=== PATIENT | male | born 1940 | race Caucasian/White ===

== ENCOUNTER 2018-01-21 07:28 | Emergency (ER) | payer MEDICARE ==
[~2018-01-21] VITALS: Ht 165.1 cm; Wt 50.8 kg
[~2018-01-21 07:28] MED LIST: ALBU90OI INH; BENZ100A PO; CEFD300 PO; HTN MED; LORA10 PO; Pseudoephedrine30 MG PO; SPACE CHAMBER1 EACH MC; Veetids 500500 MG PO; Zithromax250 MG PO
[2018-01-21 08:30] LABS: Source, Urine Catheter
[2018-01-21 08:41] LABS: Bilirubin, Urine Neg (Neg); Blood, Urine 1+ (Neg); Glucose Qualitative, Urine Neg (Neg); Ketones, Urine Neg (Neg); Leukocyte Esterase, Urine Neg (Neg); Nitrite, Urine Neg (Neg); Protein, Urine Neg (Neg); Specific Gravity, Urine 1.015 (1.003-1.022); Urobilinogen, Urine NORM (Normal)
[2018-01-21 08:43] LABS: BASOPHILS ABSOLUTE AUTO 0.03 K/mm3 (0.00-0.23); BASOPHILS PERCENT AUTO 1 % (0-2); EOSINOPHILS ABSOLUTE AUTO 0.12 K/mm3 (0.00-0.68); EOSINOPHILS PERCENT AUTO 2 % (0-6); Hemoglobin 14.5 g/dL (13.5-17.5); IMMATURE GRAN ABSOLUTE AUTO 0.01 K/mm3 (0.00-0.10); IMMATURE GRAN PERCENT AUTO 0 % (0-1); LYMPHOCYTES ABSOLUTE AUTO 1.23 K/mm3 (0.84-5.20); LYMPHOCYTES PERCENT AUTO 20 % (21-46); MONOCYTES ABSOLUTE AUTO 0.44 K/mm3 (0.16-1.47); MONOCYTES PERCENT AUTO 7 % (4-13); Mean Corpuscular HGB 30.9 pg (26.0-34.0); Mean Corpuscular HGB Conc 33.7 g/dL (31.5-36.5); Mean Corpuscular Volume 92 fL (80-100); Mean Platelet Volume 10.5 fL (9.1-12.4); NEUTROPHILS ABSOLUTE AUTO 4.41 K/mm3 (1.96-9.15); NEUTROPHILS PERCENT AUTO 71 % (41-73); Platelet Count 163 K/mm3 (150-400); RDW Coefficient Variation 13.2 % (11.7-14.2); RDW Standard Deviation 44.8 fL (35.1-46.3); White Blood Cell Count 6.24 K/mm3 (4.00-11.30)
[2018-01-21 08:57] LABS: Appearance, Urine Clear (Clear); Bacteria Not Seen /hpf; Color, Urine Yellow (P-Yellow); Squamous Epithelial Cells Not Seen /hpf (Few); White Blood Cells, Urine Not Seen /hpf (0-5)
[2018-01-21 09:09] LABS: Alanine Aminotransfer (ALT/SGP 25 U/L (12-78); Albumin, Blood 3.5 g/dL (3.4-5.0); Albumin/Globulin Ratio 1.2 (0.8-1.8); Alk Phos 124 U/L (50-136); Anion Gap 8 mmol/L (6-16); Aspartate Aminotrans (AST/SGOT 21 U/L (12-37); Bilirubin, Total 0.6 mg/dL (0.1-1.0); Blood Urea Nitrogen 23 mg/dL (8-24); Bun/Creatinine Ratio 33.3 (12.0-20.0); CO2, Blood 24 mmol/L (21-32); Calcium, Blood 8.3 mg/dL (8.5-10.1); Chloride, Blood 113 mmol/L (98-108); Creatinine, Blood 0.69 mg/dL (0.60-1.20); Glomerular Filtration Rate >60 (60-); Glucose, Blood 98 mg/dL (70-99); Potassium, Blood 3.9 mmol/L (3.5-5.5); Sodium, Blood 145 mmol/L (136-145); Total Protein, Blood 6.5 g/dL (6.4-8.2)
[2018-01-21] MEDS ORDERED: Flomax0.4 MG PO (09:31)
== END 2018-01-21 10:21 | disposition home or self-care (01) ==
LOC: ER 07:28
PROVIDERS: Physician Assistant
DX: R33.9 Retention of urine, unspecified (principal); F17.210 Nicotine dependence, cigarettes, uncomplicated
CPT/HCPCS: 36415; 51702; 51798; 80053; 81001; 85025; 99283-25

== ENCOUNTER 2018-04-03 14:17 | Emergency (ER) | payer MEDICARE ==
[~2018-04-03] VITALS: Ht 165.1 cm; Wt 54.4 kg
[~2018-04-03 14:17] MED LIST changes: +Flomax0.4 MG PO
[2018-04-03 16:38] LABS: Source, Urine Catheter
[2018-04-03 16:46] LABS: Bilirubin, Urine Neg (Neg); Blood, Urine 5+ (Neg); Glucose Qualitative, Urine Neg (Neg); Ketones, Urine 1+ (Neg); Leukocyte Esterase, Urine 3+ (Neg); Nitrite, Urine Pos (Neg); Protein, Urine 2+ (Neg); Urobilinogen, Urine 1+ (Normal)
[2018-04-03 16:59] LABS: Appearance, Urine Clear (Clear); Color, Urine Yellow (P-Yellow)
[2018-04-03 17:00] LABS: Bacteria Few /hpf; Mucus Light (0-Heavy); Squamous Epithelial Cells Rare /hpf (Few)
[2018-04-03] MEDS ORDERED: LEVFLO500 PO (17:30)
== END 2018-04-03 18:12 | disposition home or self-care (01) ==
LOC: ER 14:17
PROVIDERS: Internal Medicine
DX: T83.511A Infection and inflammatory reaction due to indwelling urethral catheter, initial encounter (principal); F17.210 Nicotine dependence, cigarettes, uncomplicated; Z79.899 Other long term (current) drug therapy
CPT/HCPCS: 51702; 81001; 87077; 87086; 87186; 99283-25

== ENCOUNTER → 2018-08-16 | Outpatient (CLI) | payer MEDICARE ==
[~2018-08-16] MED LIST changes: +LEVFLO500 PO
== END | disposition home or self-care (01) ==
LOC: LAB EV 15:14 → LAB SHORT 15:14
DX: R33.9 Retention of urine, unspecified (principal)
CPT/HCPCS: 87086

== ENCOUNTER 2018-08-19 09:03 | Emergency (ER) | payer MEDICARE ==
[~2018-08-19] VITALS: Ht 165.1 cm; Wt 56.7 kg
[2018-08-19 10:07] LABS: Source, Urine Clean Catch
[2018-08-19 10:18] LABS: Bilirubin, Urine Neg (Neg); Blood, Urine Neg (Neg); Glucose Qualitative, Urine Neg (Neg); Ketones, Urine Neg (Neg); Leukocyte Esterase, Urine Neg (Neg); Nitrite, Urine Neg (Neg); Protein, Urine Neg (Neg); Urobilinogen, Urine NORM (Normal)
[2018-08-19 10:21] LABS: Appearance, Urine Clear (Clear); Color, Urine Yellow (P-Yellow)
[2018-08-19] MEDS ORDERED: Flomax0.4 MG PO (10:29)
== END 2018-08-19 10:57 | disposition home or self-care (01) ==
LOC: ER 09:03
PROVIDERS: Emergency Medicine
DX: N40.1 Benign prostatic hyperplasia with lower urinary tract symptoms (principal); R35.0 Frequency of micturition; F17.210 Nicotine dependence, cigarettes, uncomplicated; Z79.899 Other long term (current) drug therapy
CPT/HCPCS: 81003; 99283

== ENCOUNTER → 2018-09-18 | Outpatient (CLI) | payer MEDICARE | END | disposition home or self-care (01) | LOC: LAB EV 17:14 → LAB SHORT 17:14 | DX: N39.0 Urinary tract infection, site not specified (principal) | CPT/HCPCS: 87086 ==

== ENCOUNTER 2018-09-30 12:32 | Emergency (ER) | payer MEDICARE ==
[~2018-09-30] VITALS: Ht 165.1 cm; Wt 56.7 kg
== END 2018-09-30 14:48 | disposition left against medical advice (07) ==
LOC: ER 12:32
DX: Z53.21 Procedure and treatment not carried out due to patient leaving prior to being seen by health care provider (principal)

== ENCOUNTER → 2018-11-07 | Outpatient (CLI) | payer MEDICARE, OTHER | END | disposition home or self-care (01) | LOC: LAB EV 16:48 → LAB SHORT 16:48 | DX: N39.0 Urinary tract infection, site not specified (principal) | CPT/HCPCS: 87086 ==

== ENCOUNTER → 2019-02-13 | Outpatient (CLI) | payer MEDICARE, OTHER ==
[~2019-02-13] MED LIST changes: +Bactrim Ds Tab1 EACH PO; +CEPH500 PO; +FINA5 PO; +NITR100CA PO; +Nitrostat0.4 MG SL; +ONDA4 PO; +ONDA4ODT MM; +Pyridium200 MG PO; +Ranitidine HCl150 M1 PO; +TAMS.4ER PO
[2019-02-13 12:36] LABS: BASOPHILS ABSOLUTE AUTO 0.02 K/mm3 (0.00-0.23); BASOPHILS PERCENT AUTO 0 % (0-2); EOSINOPHILS ABSOLUTE AUTO 0.06 K/mm3 (0.00-0.68); EOSINOPHILS PERCENT AUTO 1 % (0-6); Hematocrit 39.8 % (37.0-53.0); Hemoglobin 13.7 g/dL (13.5-17.5); IMMATURE GRAN ABSOLUTE AUTO 0.05 K/mm3 (0.00-0.10); IMMATURE GRAN PERCENT AUTO 1 % (0-1); LYMPHOCYTES ABSOLUTE AUTO 0.99 K/mm3 (0.84-5.20); LYMPHOCYTES PERCENT AUTO 11 % (21-46); MONOCYTES ABSOLUTE AUTO 0.68 K/mm3 (0.16-1.47); MONOCYTES PERCENT AUTO 8 % (4-13); Mean Corpuscular HGB 31.7 pg (26.0-34.0); Mean Corpuscular HGB Conc 34.4 g/dL (31.5-36.5); Mean Corpuscular Volume 92 fL (80-100); Mean Platelet Volume 10.4 fL (9.1-12.4); NEUTROPHILS ABSOLUTE AUTO 7.18 K/mm3 (1.96-9.15); NEUTROPHILS PERCENT AUTO 80 % (41-73); Platelet Count 191 K/mm3 (150-400); RDW Coefficient Variation 13.6 % (11.7-14.2); Red Blood Cell Count 4.32 M/mm3 (4.30-5.90); White Blood Cell Count 8.98 K/mm3 (4.00-11.30)
[2019-02-13 12:48] LABS: Alanine Aminotransfer (ALT/SGP 19 U/L (12-78); Albumin, Blood 3.1 g/dL (3.4-5.0); Alk Phos 127 U/L (40-126); Anion Gap 11 mmol/L (6-16); Aspartate Aminotrans (AST/SGOT 15 U/L (12-37); Bilirubin, Total 0.8 mg/dL (0.1-1.0); Blood Urea Nitrogen 14 mg/dL (8-24); Bun/Creatinine Ratio 18.2 (12.0-20.0); CO2, Blood 23 mmol/L (21-32); Calcium, Blood 8.1 mg/dL (8.5-10.1); Chloride, Blood 103 mmol/L (98-108); Creatinine, Blood 0.77 mg/dL (0.60-1.20); Globulin, Blood 3.2 g/dL (2.2-4.0); Glomerular Filtration Rate >60 (60-); Glucose, Blood 127 mg/dL (70-99); Potassium, Blood 4.2 mmol/L (3.5-5.5); Sodium, Blood 137 mmol/L (136-145); Total Protein, Blood 6.3 g/dL (6.4-8.2)
== END | disposition home or self-care (01) ==
LOC: LAB SHORT 12:32 → LAB EV 12:32
PROVIDERS: Family Medicine
DX: R63.4 Abnormal weight loss (principal)
CPT/HCPCS: 80053; 83690; 85025

== ENCOUNTER 2019-02-15 19:00 | Emergency (ER) | payer MEDICARE, OTHER ==
[~2019-02-15] VITALS: Ht 162.6 cm; Wt 63.5 kg
[~2019-02-15 19:00] MED LIST changes: -Bactrim Ds Tab1 EACH PO; -CEPH500 PO; -FINA5 PO; -NITR100CA PO; -Nitrostat0.4 MG SL; -ONDA4 PO; -ONDA4ODT MM; -Pyridium200 MG PO; -Ranitidine HCl150 M1 PO; -TAMS.4ER PO
[2019-02-15 19:56] LABS: BASOPHILS ABSOLUTE AUTO 0.03 K/mm3 (0.00-0.23); BASOPHILS PERCENT AUTO 0 % (0-2); EOSINOPHILS ABSOLUTE AUTO 0.13 K/mm3 (0.00-0.68); EOSINOPHILS PERCENT AUTO 1 % (0-6); Hematocrit 37.2 % (37.0-53.0); Hemoglobin 12.4 g/dL (13.5-17.5); IMMATURE GRAN ABSOLUTE AUTO 0.06 K/mm3 (0.00-0.10); IMMATURE GRAN PERCENT AUTO 1 % (0-1); LYMPHOCYTES ABSOLUTE AUTO 1.23 K/mm3 (0.84-5.20); LYMPHOCYTES PERCENT AUTO 13 % (21-46); MONOCYTES ABSOLUTE AUTO 0.73 K/mm3 (0.16-1.47); MONOCYTES PERCENT AUTO 8 % (4-13); Mean Corpuscular HGB Conc 33.3 g/dL (31.5-36.5); Mean Corpuscular Volume 93 fL (80-100); Mean Platelet Volume 10.1 fL (9.1-12.4); NEUTROPHILS ABSOLUTE AUTO 7.11 K/mm3 (1.96-9.15); NEUTROPHILS PERCENT AUTO 77 % (41-73); Platelet Count 214 K/mm3 (150-400); RDW Coefficient Variation 13.6 % (11.7-14.2); RDW Standard Deviation 46.3 fL (35.1-46.3); White Blood Cell Count 9.29 K/mm3 (4.00-11.30)
[2019-02-15 20:24] LABS: Alanine Aminotransfer (ALT/SGP 19 U/L (12-78); Albumin, Blood 3.4 g/dL (3.4-5.0); Albumin/Globulin Ratio 1.1 (0.8-1.8); Alk Phos 108 U/L (50-136); Anion Gap 7 mmol/L (6-16); Aspartate Aminotrans (AST/SGOT 12 U/L (12-37); Bilirubin, Total 0.3 mg/dL (0.1-1.0); Blood Urea Nitrogen 23 mg/dL (8-24); Bun/Creatinine Ratio 24.7 (12.0-20.0); CO2, Blood 23 mmol/L (21-32); Calcium, Blood 8.5 mg/dL (8.5-10.1); Chloride, Blood 109 mmol/L (98-108); Creatinine, Blood 0.93 mg/dL (0.60-1.20); Glomerular Filtration Rate >60 (60-); Glucose, Blood 100 mg/dL (70-99); Potassium, Blood 4.9 mmol/L (3.5-5.5); Sodium, Blood 139 mmol/L (136-145); Total Protein, Blood 6.4 g/dL (6.4-8.2)
[2019-02-15 22:45] LABS: Source, Urine Catheter
[2019-02-15 22:50] LABS: Bilirubin, Urine Neg (Neg); Blood, Urine 5+ (Neg); Glucose Qualitative, Urine Neg (Neg); Ketones, Urine Neg (Neg); Leukocyte Esterase, Urine 2+ (Neg); Nitrite, Urine Neg (Neg); Protein, Urine 2+ (Neg); Urobilinogen, Urine 1+ (Normal)
[2019-02-15 22:55] LABS: Appearance, Urine Hazy (Clear); Color, Urine Yellow (P-Yellow)
[2019-02-15 22:57] LABS: Amorphous Light ({null, 0-Heavy}); Bacteria Few /hpf; Mucus Light ({null, 0-Heavy}); Red Blood Cells, Urine TNTC /hpf (0-2); Squamous Epithelial Cells Not Seen /hpf (Few); Uric Acid Crystals Mod /hpf
[2019-02-16] MEDS ORDERED: ONDA4ODT MM (00:01)
== END 2019-02-16 00:15 | disposition home or self-care (01) ==
LOC: ER 19:00
PROVIDERS: Physician Assistant
DX: R11.2 Nausea with vomiting, unspecified (principal); F17.210 Nicotine dependence, cigarettes, uncomplicated
CPT/HCPCS: 36415; 80053; 81001; 83690; 85025; 87086; 96361; 96374; 99283-25; J2405; J7030

== ENCOUNTER 2019-02-24 18:58 | Observation (INO) | payer MEDICARE, OTHER ==
[~2019-02-24] VITALS: Ht 165.1 cm; Wt 50.8 kg
[~2019-02-24 18:58] MED LIST changes: +ONDA4ODT MM
[2019-02-24 19:23] LABS: BASOPHILS ABSOLUTE AUTO 0.03 K/mm3 (0.00-0.23); BASOPHILS PERCENT AUTO 0 % (0-2); EOSINOPHILS ABSOLUTE AUTO 0.11 K/mm3 (0.00-0.68); EOSINOPHILS PERCENT AUTO 1 % (0-6); Hematocrit 36.6 % (37.0-53.0); Hemoglobin 11.8 g/dL (13.5-17.5); IMMATURE GRAN ABSOLUTE AUTO 0.04 K/mm3 (0.00-0.10); IMMATURE GRAN PERCENT AUTO 0 % (0-1); LYMPHOCYTES ABSOLUTE AUTO 1.16 K/mm3 (0.84-5.20); LYMPHOCYTES PERCENT AUTO 11 % (21-46); MONOCYTES ABSOLUTE AUTO 0.43 K/mm3 (0.16-1.47); MONOCYTES PERCENT AUTO 4 % (4-13); Mean Corpuscular HGB 31.1 pg (26.0-34.0); Mean Corpuscular HGB Conc 32.2 g/dL (31.5-36.5); Mean Platelet Volume 9.8 fL (9.1-12.4); NEUTROPHILS ABSOLUTE AUTO 8.46 K/mm3 (1.96-9.15); NEUTROPHILS PERCENT AUTO 83 % (41-73); Platelet Count 285 K/mm3 (150-400); RDW Coefficient Variation 13.2 % (11.7-14.2); RDW Standard Deviation 47.9 fL (35.1-46.3); Red Blood Cell Count 3.79 M/mm3 (4.30-5.90); White Blood Cell Count 10.23 K/mm3 (4.00-11.30)
[2019-02-24 19:28] LABS: Mean Corpuscular Volume 97 fL (80-100)
[2019-02-24 19:36] LABS: Alanine Aminotransfer (ALT/SGP 21 U/L (12-78); Albumin, Blood 3.1 g/dL (3.4-5.0); Alk Phos 125 U/L (50-136); Anion Gap 8 mmol/L (6-16); Aspartate Aminotrans (AST/SGOT 13 U/L (12-37); Bilirubin, Total 0.3 mg/dL (0.1-1.0); Blood Urea Nitrogen 21 mg/dL (8-24); Bun/Creatinine Ratio 27.6 (12.0-20.0); CO2, Blood 22 mmol/L (21-32); Calcium, Blood 7.9 mg/dL (8.5-10.1); Chloride, Blood 109 mmol/L (98-108); Creatinine, Blood 0.76 mg/dL (0.60-1.20); Globulin, Blood 3.1 g/dL (2.2-4.0); Glomerular Filtration Rate >60 (60-); Glucose, Blood 187 mg/dL (70-99); Potassium, Blood 3.9 mmol/L (3.5-5.5); Sodium, Blood 139 mmol/L (136-145); Total Protein, Blood 6.2 g/dL (6.4-8.2); Troponin I <0.015 ng/mL (0.000-0.040)
[2019-02-24 21:58] LABS: Source, Urine Voided
[2019-02-24 22:07] LABS: Bilirubin, Urine Neg (Neg); Blood, Urine 5+ (Neg); Glucose Qualitative, Urine Neg (Neg); Ketones, Urine 1+ (Neg); Leukocyte Esterase, Urine 2+ (Neg); Nitrite, Urine Neg (Neg); Protein, Urine 2+ (Neg); Specific Gravity, Urine 1.015 (1.003-1.022); Urobilinogen, Urine 2+ (Normal)
[2019-02-24 22:08] LABS: Appearance, Urine Clear (Clear); Color, Urine Amber (P-Yellow)
[2019-02-24 22:16] LABS: Bacteria Mod /hpf; Mucus Light (0-Heavy); Red Blood Cells, Urine TNTC /hpf (0-2); Squamous Epithelial Cells Not Seen /hpf (Few)
--- NOTE | 2019-02-25 06:38 | NUR ---
SHIFT SUMMARY PT ARRIVED TO ROOM APPROX 0200. NO C/O PAIN. BEEN VERY SLEEPY NOT ABLE TO STAY AWAKE FOR VERY LONG BEFORE FALLING BACK TO SLEEP. CALL LIGHT IN REACH.
--- NOTE | 2019-02-25 18:53 | NUR ---
SHIFT SUMMARY PT SLEEPING DURING SHIFT REPORT. PT ADMITTED DURING THE NIGHT FROM ER WITH C/O CP. PER REPORT, PT WITH HX OF PARAESOPHAGEAL HERNIA. DR RENEE CONSULTED FOR SX; HERE TO SEE PT TODAY. NO SX INTERVENTION AT THIS TIME; PT TO FOLLOW UP WITH DR STORY OUTPT. ADAM TO GRAVITY, DRAINING ISELA URINE. PT REPORTED ADAM CATH NOT CHRONIC, BUT PLACED IN ER. PT UNCLEAR ABOUT REASON. HOWEVER, LATER IN THE DAY REPORTED IT CHRONIC ADAM THAT HE CAME IN WITH AN NEEDED A LEG BAG FOR D/C. PT WITH MULTIPLE FRIENDS IN AND OUT OF ALL DAY. PT OUT TO [facility] WITH SOME OF THEM OFF AND ON. DR BONILLA CALLED TO REPORT PT ABLE TO D/C. PT INFORMED OF D/C AND THEN GATHERED HIS THINGS AND HEADED TO ELEVATOR. ATTEMPTED TO STOP PT TO TAKE OUT IV AND CHANGE OUT ADAM BAG AND PROVIDE D/C INSTRUCTIONS, BUT PT STATED "I'LL BE BACK", AND LEFT. PT JUST NOW RETURNED TO . FS IV TO LFA D/C'D WNL. NRS PRESS HELPER NOTIFIED FOR LEG BAG FOR ADAM. PT SITTING ON EOB, DRESSED WANTING TO LEAVE HIS RIDE IS WAITING. REPORT GIVEN TO ONCOMING RN. NO C/O CP OR DIFFICULTIES TODAY. TOLERATED ALL MEALS. INDEPENDENT OUT TO SMOKE.
--- NOTE | 2019-02-25 19:58 | NUR ---
02/25/191904 Pt walked outside AND HAD TAKEN HIS HEART MONITOR OFF. [employer]IONS CONSULTANT, NAVIN AND TANA NOTIFIED. PT RETURNED AT 1940 AND WAS GIVEN DICHARGE INSTRUCTIONS BY NAVIN MI. PICKED UP BY [facility].
[2019-02-26] MEDS ORDERED: ONDA4 PO (17:03)
[2019-02-26] MEDS ORDERED: NITR100CA PO (17:03)
[2019-02-26] MEDS ORDERED: Nitrostat0.4 MG SL (18:23)
== END 2019-02-25 20:00 | disposition home or self-care (01) ==
LOC: ER 18:58 → MEDS 18:59
PROVIDERS: Emergency Medicine; ADMIT Hospitalist
DX: K44.9 Diaphragmatic hernia without obstruction or gangrene (principal); D64.9 Anemia, unspecified; R93.89 Abnormal findings on diagnostic imaging of other specified body structures; F17.210 Nicotine dependence, cigarettes, uncomplicated
CPT/HCPCS: 36415; 71046; 71260; 80053; 81001; 83880; 84484; 85025; 93005; 93010; 96360-59; 96361; 96372; 99285-25; G0378; J1650; J2405; J7030; Q9967

== ENCOUNTER 2019-02-26 16:44 | Emergency (ER) | payer MEDICARE, OTHER ==
[~2019-02-26] VITALS: Ht 165.1 cm; Wt 49.9 kg
[2019-02-26] MEDS ORDERED: ONDA4 PO (17:03)
[2019-02-26] MEDS ORDERED: NITR100CA PO (17:03)
[2019-02-26] MEDS ORDERED: Nitrostat0.4 MG SL (18:23)
== END 2019-02-26 18:54 | disposition home or self-care (01) ==
LOC: ER 16:44
DX: R07.2 Precordial pain (principal); K44.9 Diaphragmatic hernia without obstruction or gangrene; F17.200 Nicotine dependence, unspecified, uncomplicated; Z79.899 Other long term (current) drug therapy
CPT/HCPCS: 36415; 84484; 93005; 93010; 99284-25

== ENCOUNTER 2019-02-27 12:52 | Day surgery (SDC) | payer MEDICARE ==
[~2019-02-27] VITALS: Ht 165.1 cm; Wt 49.5 kg
[~2019-02-27 12:52] MED LIST changes: +NITR100CA PO; +Nitrostat0.4 MG SL; +ONDA4 PO
--- NOTE | 2019-02-27 16:41 | NUR ---
02/27/19 Lorin Cleaning RN KEPT PT UPDATED REGARDING THE DELAY IN HIS CASE. PT ACCOMPANIED BY MULTIPLE FRIENDS IN THE PRE OP AREA. CALL LIGHT IN REACH DURING PRE OP.
[2019-02-28] MEDS ORDERED: FINA5 PO (19:16)
[2019-02-28] MEDS ORDERED: Ranitidine HCl150 M1 PO (19:16)
[2019-02-28] MEDS ORDERED: TAMS.4ER PO (19:16)
== END 2019-02-27 17:26 | disposition home or self-care (01) ==
LOC: ORSCSDS 12:52
PROVIDERS: Student in an Organized Health Care Education/Training Program
PROC: 0DB98ZX Excision of Duodenum, Via Natural or Artificial Opening Endoscopic, Diagnostic (ICD-10-PCS; principal; 2019-02-27 14:15)
PROC: 0DB68ZX Excision of Stomach, Via Natural or Artificial Opening Endoscopic, Diagnostic (ICD-10-PCS; principal; 2019-02-27 14:15)
DX: R11.2 Nausea with vomiting, unspecified (principal); K29.70 Gastritis, unspecified, without bleeding; K26.9 Duodenal ulcer, unspecified as acute or chronic, without hemorrhage or perforation; R63.4 Abnormal weight loss; F17.210 Nicotine dependence, cigarettes, uncomplicated; K44.9 Diaphragmatic hernia without obstruction or gangrene
CPT/HCPCS: 88305; 88342; J2405; J2704; J7120

== ENCOUNTER 2019-02-28 18:18 | Emergency (ER) | payer MEDICARE, OTHER ==
[~2019-02-28] VITALS: Ht 165.1 cm; Wt 49.9 kg
[2019-02-28 18:52] LABS: BASOPHILS ABSOLUTE AUTO 0.02 K/mm3 (0.00-0.23); BASOPHILS PERCENT AUTO 0 % (0-2); EOSINOPHILS ABSOLUTE AUTO 0.17 K/mm3 (0.00-0.68); EOSINOPHILS PERCENT AUTO 2 % (0-6); Hematocrit 37.4 % (37.0-53.0); Hemoglobin 12.6 g/dL (13.5-17.5); IMMATURE GRAN ABSOLUTE AUTO 0.04 K/mm3 (0.00-0.10); IMMATURE GRAN PERCENT AUTO 1 % (0-1); LYMPHOCYTES ABSOLUTE AUTO 1.95 K/mm3 (0.84-5.20); LYMPHOCYTES PERCENT AUTO 22 % (21-46); MONOCYTES ABSOLUTE AUTO 0.57 K/mm3 (0.16-1.47); MONOCYTES PERCENT AUTO 7 % (4-13); Mean Corpuscular HGB 31.7 pg (26.0-34.0); Mean Corpuscular HGB Conc 33.7 g/dL (31.5-36.5); Mean Platelet Volume 9.8 fL (9.1-12.4); NEUTROPHILS ABSOLUTE AUTO 5.97 K/mm3 (1.96-9.15); NEUTROPHILS PERCENT AUTO 69 % (41-73); Platelet Count 322 K/mm3 (150-400); RDW Coefficient Variation 13.3 % (11.7-14.2); RDW Standard Deviation 46.2 fL (35.1-46.3); Red Blood Cell Count 3.98 M/mm3 (4.30-5.90); White Blood Cell Count 8.72 K/mm3 (4.00-11.30)
[2019-02-28 18:57] LABS: Mean Corpuscular Volume 94 fL (80-100)
[2019-02-28 19:16] LABS: Alanine Aminotransfer (ALT/SGP 18 U/L (12-78); Albumin, Blood 3.3 g/dL (3.4-5.0); Albumin/Globulin Ratio 0.9 (0.8-1.8); Alk Phos 135 U/L (50-136); Anion Gap 6 mmol/L (6-16); Aspartate Aminotrans (AST/SGOT 11 U/L (12-37); Bilirubin, Total 0.3 mg/dL (0.1-1.0); Blood Urea Nitrogen 20 mg/dL (8-24); Bun/Creatinine Ratio 26.6 (12.0-20.0); CO2, Blood 24 mmol/L (21-32); Calcium, Blood 8.9 mg/dL (8.5-10.1); Chloride, Blood 111 mmol/L (98-108); Creatinine, Blood 0.75 mg/dL (0.60-1.20); Globulin, Blood 3.7 g/dL (2.2-4.0); Glomerular Filtration Rate >60 (60-); Glucose, Blood 116 mg/dL (70-99); Potassium, Blood 4.4 mmol/L (3.5-5.5); Sodium, Blood 141 mmol/L (136-145); Troponin I <0.015 ng/mL (0.000-0.040)
[2019-02-28] MEDS ORDERED: TAMS.4ER PO (19:16)
[2019-02-28] MEDS ORDERED: Ranitidine HCl150 M1 PO (19:16)
[2019-02-28] MEDS ORDERED: FINA5 PO (19:16)
== END 2019-02-28 21:13 | disposition home or self-care (01) ==
LOC: ER 18:18
PROVIDERS: Physician Assistant
DX: K44.9 Diaphragmatic hernia without obstruction or gangrene (principal); R07.9 Chest pain, unspecified; N20.0 Calculus of kidney; F17.200 Nicotine dependence, unspecified, uncomplicated; Z79.899 Other long term (current) drug therapy
CPT/HCPCS: 36415; 71250; 74150; 80053; 83880; 84484; 85025; 93005; 93010; 96374; 99284-25; J2405

== ENCOUNTER 2019-03-08 19:17 | Emergency (ER) | payer MEDICARE, OTHER ==
[~2019-03-08] VITALS: Ht 165.1 cm; Wt 48.1 kg
[~2019-03-08 19:17] MED LIST changes: +FINA5 PO; +Ranitidine HCl150 M1 PO; +TAMS.4ER PO
== END 2019-03-08 20:25 | disposition home or self-care (01) ==
LOC: ER 19:17
DX: T83.031A Leakage of indwelling urethral catheter, initial encounter (principal); Z79.899 Other long term (current) drug therapy; F17.200 Nicotine dependence, unspecified, uncomplicated
CPT/HCPCS: 99283

== ENCOUNTER 2019-03-15 10:02 | Emergency (ER) | payer MEDICARE, OTHER ==
[~2019-03-15] VITALS: Ht 157.5 cm; Wt 48.1 kg
[2019-03-16] MEDS ORDERED: CEPH500 PO (08:38)
== END 2019-03-15 11:32 | disposition home or self-care (01) ==
LOC: ER 10:02
DX: K62.5 Hemorrhage of anus and rectum (principal); Z46.6 Encounter for fitting and adjustment of urinary device; F17.200 Nicotine dependence, unspecified, uncomplicated; Z79.899 Other long term (current) drug therapy
CPT/HCPCS: 99283

== ENCOUNTER 2019-03-16 07:28 | Emergency (ER) | payer MEDICARE, OTHER ==
[~2019-03-16] VITALS: Ht 162.6 cm; Wt 45.4 kg
[2019-03-16 07:55] LABS: Source, Urine Catheter
[2019-03-16 08:03] LABS: Bilirubin, Urine Neg (Neg); Blood, Urine 2+ (Neg); Glucose Qualitative, Urine Neg (Neg); Ketones, Urine Neg (Neg); Leukocyte Esterase, Urine 1+ (Neg); Nitrite, Urine Pos (Neg); Protein, Urine Neg (Neg); Urobilinogen, Urine NORM (Normal)
[2019-03-16 08:10] LABS: Calcium, Ionized (POC) 1.01 mmol/L (1.10-1.46); Chloride (POC) 108 mmol/L (98-108); Creatinine (POC) 0.6 mg/dL (0.8-1.3); Glucose (ISTAT POC) 101 mg/dL (70-99); Hemoglobin (POC) 12.9 g/dL (13.5-17.5); Potassium (POC) 4.2 mmol/L (3.5-5.5); Sodium (POC) 140 mmol/L (135-148); Total CO2 (POC) 25 mmol/L (21-32)
[2019-03-16 08:31] LABS: Appearance, Urine Clear (Clear); Color, Urine Yellow (P-Yellow)
[2019-03-16 08:32] LABS: Bacteria Many /hpf; Squamous Epithelial Cells Not Seen /hpf (Few)
[2019-03-16] MEDS ORDERED: CEPH500 PO (08:38)
== END 2019-03-16 08:37 | disposition home or self-care (01) ==
LOC: ER 07:28
PROVIDERS: Emergency Medicine
DX: N39.0 Urinary tract infection, site not specified (principal); F17.210 Nicotine dependence, cigarettes, uncomplicated; Z79.899 Other long term (current) drug therapy
CPT/HCPCS: 36415; 51702; 80047; 81001; 85014; 87077; 87086; 87186; 99283-25

== ENCOUNTER 2019-03-25 19:00 | Emergency (ER) | payer MEDICARE, OTHER ==
[~2019-03-25] VITALS: Ht 162.6 cm; Wt 45.4 kg
[~2019-03-25 19:00] MED LIST changes: +CEPH500 PO
[2019-03-25] MEDS ORDERED: Bactrim Ds Tab1 EACH PO (20:55)
[2019-03-25] MEDS ORDERED: Pyridium200 MG PO (20:55)
[2019-03-25 21:37] LABS: Source, Urine Catheter
[2019-03-25 21:43] LABS: Bilirubin, Urine Neg (Neg); Blood, Urine 5+ (Neg); Glucose Qualitative, Urine Neg (Neg); Ketones, Urine Neg (Neg); Leukocyte Esterase, Urine 3+ (Neg); Nitrite, Urine Neg (Neg); Protein, Urine 2+ (Neg); Urobilinogen, Urine NORM (Normal)
[2019-03-25 21:57] LABS: Appearance, Urine Hazy (Clear); Color, Urine Yellow (P-Yellow)
[2019-03-25 21:58] LABS: Amorphous Mod (0-Heavy); Bacteria Mod /hpf; Mucus Light (0-Heavy); Red Blood Cells, Urine 25-50 /hpf (0-2); Squamous Epithelial Cells Not Seen /hpf (Few)
== END 2019-03-25 21:53 | disposition home or self-care (01) ==
LOC: ER 19:00
PROVIDERS: Physician Assistant
DX: N48.89 Other specified disorders of penis (principal); F17.200 Nicotine dependence, unspecified, uncomplicated
CPT/HCPCS: 51702; 81001; 87086; 99283-25

== ENCOUNTER 2019-04-03 09:13 | Emergency (ER) | payer MEDICARE, OTHER ==
[~2019-04-03] VITALS: Ht 165.1 cm; Wt 45.4 kg
[~2019-04-03 09:13] MED LIST changes: +Bactrim Ds Tab1 EACH PO; +Pyridium200 MG PO
== END 2019-04-03 10:38 | disposition home or self-care (01) ==
LOC: ER 09:13
DX: T83.098A Other mechanical complication of other urinary catheter, initial encounter (principal); Z79.899 Other long term (current) drug therapy; F17.200 Nicotine dependence, unspecified, uncomplicated
CPT/HCPCS: 99283

== ENCOUNTER 2019-04-17 14:22 | Emergency (ER) | payer MEDICARE, OTHER ==
[~2019-04-17] VITALS: Ht 165.1 cm; Wt 45.4 kg
== END 2019-04-17 16:28 | disposition home or self-care (01) ==
LOC: ER 14:22
DX: T83.091A Other mechanical complication of indwelling urethral catheter, initial encounter (principal); F17.200 Nicotine dependence, unspecified, uncomplicated
CPT/HCPCS: 51702; 99283

== ENCOUNTER 2019-04-27 22:59 | Emergency (ER) | payer MEDICARE, OTHER ==
[~2019-04-27] VITALS: Ht 165.1 cm; Wt 47.6 kg
[2019-04-27 23:57] LABS: BASOPHILS ABSOLUTE AUTO 0.03 K/mm3 (0.00-0.23); BASOPHILS PERCENT AUTO 0 % (0-2); EOSINOPHILS ABSOLUTE AUTO 0.27 K/mm3 (0.00-0.68); EOSINOPHILS PERCENT AUTO 4 % (0-6); Hematocrit 38.5 % (37.0-53.0); Hemoglobin 12.4 g/dL (13.5-17.5); IMMATURE GRAN ABSOLUTE AUTO 0.03 K/mm3 (0.00-0.10); IMMATURE GRAN PERCENT AUTO 0 % (0-1); LYMPHOCYTES ABSOLUTE AUTO 2.23 K/mm3 (0.84-5.20); LYMPHOCYTES PERCENT AUTO 31 % (21-46); MONOCYTES ABSOLUTE AUTO 0.52 K/mm3 (0.16-1.47); MONOCYTES PERCENT AUTO 7 % (4-13); Mean Corpuscular HGB 31.1 pg (26.0-34.0); Mean Corpuscular HGB Conc 32.2 g/dL (31.5-36.5); Mean Corpuscular Volume 97 fL (80-100); Mean Platelet Volume 11.1 fL (9.1-12.4); NEUTROPHILS ABSOLUTE AUTO 4.12 K/mm3 (1.96-9.15); NEUTROPHILS PERCENT AUTO 57 % (41-73); Platelet Count 181 K/mm3 (150-400); RDW Coefficient Variation 13.7 % (11.7-14.2); RDW Standard Deviation 48.7 fL (35.1-46.3); Red Blood Cell Count 3.99 M/mm3 (4.30-5.90)
[2019-04-28 00:10] LABS: Alanine Aminotransfer (ALT/SGP 17 U/L (12-78); Albumin, Blood 3.2 g/dL (3.4-5.0); Alk Phos 92 U/L (50-136); Anion Gap 3 mmol/L (6-16); Aspartate Aminotrans (AST/SGOT 20 U/L (12-37); Bilirubin, Total 0.1 mg/dL (0.1-1.0); Blood Urea Nitrogen 21 mg/dL (8-24); Bun/Creatinine Ratio 27.6 (12.0-20.0); CO2, Blood 30 mmol/L (21-32); Calcium, Blood 8.3 mg/dL (8.5-10.1); Chloride, Blood 111 mmol/L (98-108); Creatinine, Blood 0.76 mg/dL (0.60-1.20); Globulin, Blood 3.1 g/dL (2.2-4.0); Glomerular Filtration Rate >60 (60-); Glucose, Blood 92 mg/dL (70-99); Potassium, Blood 4.2 mmol/L (3.5-5.5); Sodium, Blood 144 mmol/L (136-145); Total Protein, Blood 6.3 g/dL (6.4-8.2)
[2019-04-28 00:50] LABS: Source, Urine Clean Catch
[2019-04-28 00:57] LABS: Bilirubin, Urine Neg (Neg); Blood, Urine 4+ (Neg); Glucose Qualitative, Urine Neg (Neg); Ketones, Urine Neg (Neg); Leukocyte Esterase, Urine Neg (Neg); Nitrite, Urine Neg (Neg); Protein, Urine Neg (Neg); Specific Gravity, Urine 1.015 (1.003-1.022); Urobilinogen, Urine NORM (Normal)
[2019-04-28 01:06] LABS: Appearance, Urine Clear (Clear); Color, Urine Yellow (P-Yellow)
[2019-04-28 01:07] LABS: Amorphous Light (0-Heavy); Bacteria Few /hpf; Mucus Light (0-Heavy); Red Blood Cells, Urine 25-50 /hpf (0-2); Squamous Epithelial Cells Rare /hpf (Few); White Blood Cells, Urine Rare /hpf (0-5)
== END 2019-04-28 02:56 | disposition home or self-care (01) ==
LOC: ER 22:59
PROVIDERS: Emergency Medicine
DX: R10.30 Lower abdominal pain, unspecified (principal); F17.200 Nicotine dependence, unspecified, uncomplicated
CPT/HCPCS: 36415; 80053; 81001; 83690; 85025; 99283

== ENCOUNTER → 2019-08-09 | Outpatient (CLI) | payer MEDICARE, OTHER | END | disposition home or self-care (01) | LOC: LAB EV 12:01 → LAB SHORT 12:01 | DX: N39.0 Urinary tract infection, site not specified (principal) | CPT/HCPCS: 87086 ==

== ENCOUNTER 2019-08-10 19:29 | Emergency (ER) | payer MEDICARE, OTHER ==
[~2019-08-10] VITALS: Ht 162.6 cm; Wt 59.0 kg
== END 2019-08-10 23:14 | disposition home or self-care (01) ==
LOC: ER 19:29
DX: T83.198A Other mechanical complication of other urinary devices and implants, initial encounter (principal); M25.569 Pain in unspecified knee; G89.29 Other chronic pain; F17.210 Nicotine dependence, cigarettes, uncomplicated
CPT/HCPCS: 51700; 51702; 99283-25

== ENCOUNTER 2019-09-03 17:52 | Emergency (ER) | payer MEDICARE, OTHER ==
[~2019-09-03] VITALS: Ht 165.1 cm; Wt 49.9 kg
[2019-09-03 18:41] LABS: Source, Urine Catheter
[2019-09-03 18:44] LABS: Appearance, Urine Hazy (Clear); Blood, Urine 5+ (Neg); Glucose Qualitative, Urine Neg (Neg); Ketones, Urine 1+ (Neg); Leukocyte Esterase, Urine 3+ (Neg); Nitrite, Urine Pos (Neg); Protein, Urine 3+ (Neg); Urobilinogen, Urine 3+ (Normal)
[2019-09-03 18:46] LABS: Bilirubin, Urine 2+ (Neg)
[2019-09-03 18:47] LABS: Color, Urine Orange (P-Yellow)
[2019-09-03 18:51] LABS: Amorphous Mod (0-Heavy); Bacteria Mod /hpf; Squamous Epithelial Cells Not Seen /hpf (Few)
[2019-09-03 18:52] LABS: Calcium Oxalate Crystals Few /hpf; Spermatozoa Few /hpf; Triple Phosphate Crystals Few /hpf
[2019-09-03] MEDS ORDERED: TAMS.4ER PO (19:37)
== END 2019-09-03 19:55 | disposition home or self-care (01) ==
LOC: ER 17:52
PROVIDERS: Physician Assistant
DX: T83.098A Other mechanical complication of other urinary catheter, initial encounter (principal)
CPT/HCPCS: 51702; 81001; 87086; 99283-25; A9270-GY

== ENCOUNTER 2019-09-08 13:56 | Emergency (ER) | payer MEDICARE, OTHER ==
[~2019-09-08] VITALS: Ht 165.1 cm; Wt 52.2 kg
== END 2019-09-08 15:40 | disposition home or self-care (01) ==
LOC: ER 13:56
DX: T83.9XXA Unspecified complication of genitourinary prosthetic device, implant and graft, initial encounter (principal); F17.210 Nicotine dependence, cigarettes, uncomplicated
CPT/HCPCS: 51702; 99283-25

== ENCOUNTER 2019-09-15 00:29 | Emergency (ER) | payer MEDICARE, OTHER ==
[~2019-09-15] VITALS: Ht 165.1 cm; Wt 52.2 kg
[2019-09-15 01:04] LABS: Source, Urine Catheter
[2019-09-15 01:06] LABS: Bilirubin, Urine Neg (Neg); Blood, Urine 4+ (Neg); Glucose Qualitative, Urine Neg (Neg); Ketones, Urine Neg (Neg); Leukocyte Esterase, Urine 3+ (Neg); Nitrite, Urine Neg (Neg); Protein, Urine Neg (Neg); Specific Gravity, Urine 1.015 (1.003-1.022); Urobilinogen, Urine NORM (Normal)
[2019-09-15 01:14] LABS: Appearance, Urine Hazy (Clear); Color, Urine Yellow (P-Yellow)
[2019-09-15 01:15] LABS: Amorphous Mod (0-Heavy); Bacteria Mod /hpf; Red Blood Cells, Urine 0-2 /hpf (0-2); Squamous Epithelial Cells Not Seen /hpf (Few); White Blood Cells, Urine 50-100 /hpf (0-5)
[2019-09-15] MEDS ORDERED: Macrobid 100 M100 MG PO (02:11)
== END 2019-09-15 02:38 | disposition home or self-care (01) ==
LOC: ER 00:29
PROVIDERS: Emergency Medicine
DX: N39.0 Urinary tract infection, site not specified (principal); R33.9 Retention of urine, unspecified; F17.210 Nicotine dependence, cigarettes, uncomplicated
CPT/HCPCS: 51702; 51798; 81001; 87086; 99283-25

== ENCOUNTER 2019-09-24 16:22 | Emergency (ER) | payer MEDICARE, OTHER ==
[~2019-09-24] VITALS: Ht 165.1 cm; Wt 52.2 kg
[~2019-09-24 16:22] MED LIST changes: +Macrobid 100 M100 MG PO
[2019-09-24 17:27] LABS: Source, Urine Catheter
[2019-09-24 17:33] LABS: Blood, Urine 5+ (Neg); Glucose Qualitative, Urine Neg (Neg); Ketones, Urine Neg (Neg); Leukocyte Esterase, Urine 2+ (Neg); Nitrite, Urine Pos (Neg); Protein, Urine 3+ (Neg); Specific Gravity, Urine 1.025 (1.003-1.022); Urobilinogen, Urine 3+ (Normal)
[2019-09-24 17:43] LABS: Bilirubin, Urine 3+ (Neg); Color, Urine Orange (P-Yellow)
[2019-09-24 17:44] LABS: Appearance, Urine Cloudy (Clear)
[2019-09-24 17:46] LABS: Bacteria Mod /hpf; Red Blood Cells, Urine TNTC /hpf (0-2); Squamous Epithelial Cells Not Seen /hpf (Few); White Blood Cells, Urine 25-50 /hpf (0-5)
[2019-09-24] MEDS ORDERED: Tetracycline H500 MG PO (18:15)
== END 2019-09-24 18:39 | disposition home or self-care (01) ==
LOC: ER 16:22
PROVIDERS: Emergency Medicine
DX: N39.0 Urinary tract infection, site not specified (principal); M25.569 Pain in unspecified knee; G89.29 Other chronic pain; Z79.899 Other long term (current) drug therapy; F17.210 Nicotine dependence, cigarettes, uncomplicated
CPT/HCPCS: 51702; 71045; 81001; 99284-25

== ENCOUNTER 2019-10-15 15:45 | Emergency (ER) | payer MEDICARE, OTHER ==
[~2019-10-15] VITALS: Ht 165.1 cm; Wt 52.2 kg
[~2019-10-15 15:45] MED LIST changes: +Tetracycline H500 MG PO
[2019-10-15] MEDS ORDERED: AZO CRANBERRY1 EAC1 PO (16:24)
[2019-10-15 17:19] LABS: BASOPHILS ABSOLUTE AUTO 0.03 K/mm3 (0.00-0.23); BASOPHILS PERCENT AUTO 0 % (0-2); EOSINOPHILS ABSOLUTE AUTO 0.17 K/mm3 (0.00-0.68); EOSINOPHILS PERCENT AUTO 2 % (0-6); Hematocrit 41.6 % (37.0-53.0); Hemoglobin 13.2 g/dL (13.5-17.5); IMMATURE GRAN ABSOLUTE AUTO 0.03 K/mm3 (0.00-0.10); IMMATURE GRAN PERCENT AUTO 0 % (0-1); LYMPHOCYTES ABSOLUTE AUTO 0.86 K/mm3 (0.84-5.20); LYMPHOCYTES PERCENT AUTO 10 % (21-46); MONOCYTES ABSOLUTE AUTO 0.54 K/mm3 (0.16-1.47); MONOCYTES PERCENT AUTO 6 % (4-13); Mean Corpuscular HGB 30.6 pg (26.0-34.0); Mean Corpuscular HGB Conc 31.7 g/dL (31.5-36.5); Mean Corpuscular Volume 96 fL (80-100); Mean Platelet Volume 10.6 fL (9.1-12.4); NEUTROPHILS ABSOLUTE AUTO 7.24 K/mm3 (1.96-9.15); NEUTROPHILS PERCENT AUTO 82 % (41-73); Platelet Count 163 K/mm3 (150-400); RDW Standard Deviation 46.3 fL (35.1-46.3); Red Blood Cell Count 4.32 M/mm3 (4.30-5.90); White Blood Cell Count 8.87 K/mm3 (4.00-11.30)
[2019-10-15 17:41] LABS: Alanine Aminotransfer (ALT/SGP 48 U/L (12-78); Albumin, Blood 3.5 g/dL (3.4-5.0); Alk Phos 142 U/L (50-136); Anion Gap 4 mmol/L (6-16); Aspartate Aminotrans (AST/SGOT 33 U/L (12-37); Bilirubin, Total 0.8 mg/dL (0.1-1.0); Blood Urea Nitrogen 20 mg/dL (8-24); Bun/Creatinine Ratio 27.7 (12.0-20.0); CO2, Blood 29 mmol/L (21-32); Calcium, Blood 8.5 mg/dL (8.5-10.1); Chloride, Blood 108 mmol/L (98-108); Creatinine, Blood 0.72 mg/dL (0.60-1.20); Globulin, Blood 3.5 g/dL (2.2-4.0); Glomerular Filtration Rate >60 (60-); Glucose, Blood 87 mg/dL (70-99); Sodium, Blood 141 mmol/L (136-145)
== END 2019-10-15 17:45 | disposition home or self-care (01) ==
LOC: ER 15:45
PROVIDERS: Emergency Medicine
DX: T83.098A Other mechanical complication of other urinary catheter, initial encounter (principal); Z79.899 Other long term (current) drug therapy; F17.210 Nicotine dependence, cigarettes, uncomplicated
CPT/HCPCS: 36415; 51798; 80053; 85025; 96360; 96361; 99283-25; J7030

== ENCOUNTER 2019-10-20 10:08 | Emergency (ER) | payer MEDICARE, OTHER ==
[~2019-10-20] VITALS: Ht 165.1 cm; Wt 52.2 kg
[~2019-10-20 10:08] MED LIST changes: +AZO CRANBERRY1 EAC1 PO
[2019-10-20 11:05] LABS: Source, Urine Catheter
[2019-10-20 11:16] LABS: Bilirubin, Urine Neg (Neg); Blood, Urine 4+ (Neg); Glucose Qualitative, Urine Neg (Neg); Ketones, Urine 1+ (Neg); Nitrite, Urine Neg (Neg); Protein, Urine 3+ (Neg); Specific Gravity, Urine 1.015 (1.003-1.022); Urobilinogen, Urine NORM (Normal)
[2019-10-20 11:19] LABS: Appearance, Urine Turbid (Clear); Color, Urine Amber (P-Yellow)
[2019-10-20 11:20] LABS: Leukocyte Esterase, Urine Neg (Neg)
[2019-10-20 11:21] LABS: Amorphous Mod (0-Heavy); Bacteria Many /hpf; Mucus Heavy (0-Heavy); Squamous Epithelial Cells Not Seen /hpf (Few)
[2019-10-20] MEDS ORDERED: Bactrim Ds Tab1 EACH PO (11:29)
[2019-10-20] MEDS ORDERED: Pyridium200 MG PO (11:29)
[2019-10-25] MEDS ORDERED: Cipro500 MG PO (01:40)
[2019-10-25] MEDS ORDERED: Pyridium100 MG PO (01:42)
== END 2019-10-20 12:16 | disposition home or self-care (01) ==
LOC: ER 10:08
PROVIDERS: Emergency Medicine
DX: N30.91 Cystitis, unspecified with hematuria (principal); F17.210 Nicotine dependence, cigarettes, uncomplicated
CPT/HCPCS: 51798; 81001; 87077; 87086; 87186; 99283-25; A9270-GY

== ENCOUNTER 2019-10-20 15:33 | Emergency (ER) | payer MEDICARE, OTHER ==
[~2019-10-20] VITALS: Ht 165.1 cm; Wt 52.2 kg
[2019-10-25] MEDS ORDERED: Cipro500 MG PO (01:40)
[2019-10-25] MEDS ORDERED: Pyridium100 MG PO (01:42)
== END 2019-10-20 18:04 | disposition home or self-care (01) ==
LOC: ER 15:33
DX: T83.091A Other mechanical complication of indwelling urethral catheter, initial encounter (principal); F17.210 Nicotine dependence, cigarettes, uncomplicated
CPT/HCPCS: 99283-25

== ENCOUNTER 2019-10-21 11:04 | Emergency (ER) | payer MEDICARE, OTHER ==
[~2019-10-21] VITALS: Ht 165.1 cm; Wt 54.4 kg
[2019-10-25] MEDS ORDERED: Cipro500 MG PO (01:40)
[2019-10-25] MEDS ORDERED: Pyridium100 MG PO (01:42)
== END 2019-10-21 12:58 | disposition home or self-care (01) ==
LOC: ER 11:04
DX: T83.091A Other mechanical complication of indwelling urethral catheter, initial encounter (principal); F17.200 Nicotine dependence, unspecified, uncomplicated; Z79.899 Other long term (current) drug therapy
CPT/HCPCS: 51700; 51798; 99283-25

== ENCOUNTER 2019-10-25 22:41 | Emergency (ER) | payer MEDICARE, OTHER ==
[~2019-10-25] VITALS: Ht 165.1 cm; Wt 54.4 kg
[~2019-10-25 22:41] MED LIST changes: +Cipro500 MG PO; +Pyridium100 MG PO
== END 2019-10-26 02:50 | disposition home or self-care (01) ==
LOC: ER 22:41
DX: T83.091A Other mechanical complication of indwelling urethral catheter, initial encounter (principal); F17.210 Nicotine dependence, cigarettes, uncomplicated
CPT/HCPCS: 51702; 99283-25

== ENCOUNTER 2019-10-31 11:16 | Emergency (ER) | payer MEDICARE, OTHER ==
[~2019-10-31] VITALS: Ht 165.1 cm; Wt 54.4 kg
== END 2019-10-31 15:12 | disposition home or self-care (01) ==
LOC: ER 11:16
DX: N39.0 Urinary tract infection, site not specified (principal); F17.210 Nicotine dependence, cigarettes, uncomplicated; Z96.0 Presence of urogenital implants
CPT/HCPCS: 99282; A9270-GY

== ENCOUNTER 2019-11-01 16:16 | Emergency (ER) | payer MEDICARE, OTHER ==
[~2019-11-01] VITALS: Ht 165.1 cm; Wt 54.4 kg
[2019-11-02] MEDS ORDERED: Flomax0.4 MG PO (10:03)
== END 2019-11-01 17:08 | disposition home or self-care (01) ==
LOC: ER 16:16
DX: T83.091A Other mechanical complication of indwelling urethral catheter, initial encounter (principal); F17.210 Nicotine dependence, cigarettes, uncomplicated
CPT/HCPCS: 51798; 99282-25

== ENCOUNTER 2019-11-02 09:02 | Emergency (ER) | payer MEDICARE, OTHER ==
[~2019-11-02] VITALS: Ht 165.1 cm; Wt 54.4 kg
[2019-11-02] MEDS ORDERED: Flomax0.4 MG PO (10:03)
== END 2019-11-02 11:10 | disposition home or self-care (01) ==
LOC: ER 09:02
DX: T83.9XXA Unspecified complication of genitourinary prosthetic device, implant and graft, initial encounter (principal); F17.200 Nicotine dependence, unspecified, uncomplicated; Z87.440 Personal history of urinary (tract) infections
CPT/HCPCS: 51798; 99283-25